=== PATIENT | female | born 1995 | race Two or more races ===

== ENCOUNTER 2024-04-23 11:07 | Emergency (ER) | payer MEDICAID ==
[~2024-04-23] VITALS: Ht 167.6 cm; Wt 87.3 kg
[2024-04-23] MEDS: ACETAMINOPHEN 325 MG TAB PO ONE (11:20)
[2024-04-23 12:36] VITALS: BP 125/62; PULSE 115; RESP 18; O2SAT 99
[2024-04-23 12:45] VITALS: TEMP 100.3
[2024-04-23] MEDS: IBUPROFEN 800 MG TAB PO ONE (12:45)
[2024-04-23] MEDS: cefTRIAXone SOD 1,000 MG VL IM ONE (12:47)
--- NOTE | 2024-04-23 12:48 | ED.PDOC ---
History of Present Illness HPI Comments A 28 YEAR OLD FEMALE PRESENTS TO THE ED WITH CHIEF COMPLAINT OF FLU-LIKE ILLNESS. PATIENT REPORTS THAT SHE HAS BEEN EXPERIENCING A COUGH WITH ASSOCIATED BODY ACHES, HILLS, FEVER, AND NASAL CONGESTION FOR THE PAST 2 DAYS. PATIENT DENIES ANY SOB, CHEST PAIN, HEADACHE, N/V/D, ABDOMINAL PAIN, OR DIZZINESS. NO OT HER SYMPTOMS REPORTED AT THIS TIME OF CARE. Chief Complaint: Flu like Time Seen by MD: 12:35 Primary Care Provider: IKER Britt Notes: Nurses Notes, Medications, Allergies Allergies: Coded Allergies: NO KNOWN ALLERGIES (Unverified , 07/15/23) Information Source: Patient Mode of Arrival: Wheelchair Severity: Moderate Timing: Days Duration: Since onset Prehospital treatment: None Medication Refill: For: Other (BODY ACHING AND CHILLS ) Past Medical History PAST MEDICAL HISTORY: Denies Surgical History: Denies all surgeries HUMAN RESOURCES GENERALIST History: No Pertinent HUMAN RESOURCES GENERALIST History Family History Family History: Reviewed,noncontributory to illness Social History Smoker: Non-Smoker Alcohol: Denies ETOH Use Drugs: Denies Drug Use Lives In: Home Constitutional: reports: chills, fever, others (BODY ACHE); denies: diaphoresis, fatigue, malaise, sweats, weakness EENTM: reports: nose congestion, throat pain; denies: blurred vision, double vision, ear bleeding, ear discharge, ear drainage, ear pain, ear ringing, eye pain, eye redness, hearing loss, mouth pain, mouth swelling, nasal discharge, nose bleeding, nose pain, photophobia, tearing, throat swelling, voice changes, others Respiratory: reports: cough; denies: hemoptysis, orthopnea, SOB at rest, delmer rtness of breath, SOB with excertion, stridor, wheezing, others Cardiovascular: denies: chest pain, dizzy spells, diaphoresis, Dyspnea on exertion, edema, irregular heart beat, left arm pain, lightheadedness, palpitations, PND, syncope, others Gastrointestinal: denies: abdomen distended, abdominal pain, blood streaked bowels, constipated, diarrhea, dysphagia, difficulty swallowing, hematemesis, melena, nausea, poor appetite, poor fluid intake, rectal bleeding, rectal pain, vomiting, others Genitourinary: denies: abnormal vagina bleeding, burning, dyspareunia, dysuria, flank pain, frequency, hematuria, incontinence, pain, , vagina discharge, urgency, others Neurological: denies: dizziness, fainting, headache, left sided numbness, left sided weakness, numbness, paresthesia, pre-existing deficit, right sided numbness, right sided weakness, seizure, speech problems, tingling, tremors, weakness, others Musculoskeletal: reports: muscle pain; denies: back pain, gout, joint pain, joint swelling, muscle stiffness, neck pain, others Integumetry: denies: bruises, change in color, change in hair/nails, dryness, laceration, lesions, lumps, rash, wounds, others Allergic/Immunocompromised: denies: Difficulty Healing, Frequent Infections, Hives, Itching, others Hematologic/Lymphatic: denies: anemia, blood clots, easy bleeding, easy bruising, swollen glands, others Endocrine: denies: excessive hunger, excessive sweating, excessive thirst, excessive urination, flushing, intolerance to cold, intolerance to heat, unexplained weight gain, unexplained weight loss, others Psychiatric: denies: anxiety, bipolar disorder, depression, hopeless, panic disorder, schizophrenia, sleepless, suicidal, others All Other Systems: Reviewed and Negative Physical Exam General Appearance: No Apparent Distress, Normal HEENT: PERRL/EOMI, Pharyngeal Erythema (TONSILLAR SWELLING, NO EXUDATES. ), TMs Normal Neck: Full Range of Motion, Non-Tender, Normal, Normal Inspection Respiratory: Chest Non-Tender, Lungs Clear, No Accessory Muscle Use, No Respiratory Distress, Normal Breath Sounds Cardiovascular: No Edema, No JVD, No Murmur, No Gallop, Normal Peripheral Pulses, Regular Rate/Rhythm Breast Exam: Deferred Gastrointestinal: No Organomegaly, Non Tender, No Pulsatile Mass, Normal Bowel Sounds, Soft Genitalia: Deferred Pelvic: Deferred Rectal: Deferred Extremities: No calf tenderness, Normal capillary refill, Normal inspection, Normal range of motion, Non-tender, No pedal edema Musculoskeletal : Apperance: Normal Neurologic: Alert, chisel worker II-XII nml as Tested, No Motor Deficits, Normal Affect, Normal Mood, No Sensory Deficits Cerebellar Function: Normal Reflexes: Normal Skin: Dry, Normal Color, Warm Peripheral Pulses: 2+ carotid (R), 2+ carotid (L) Lymphatic: No Adenopathy Was a procedure done? Was a procedure done?: No Differential Dx Considerations may include: URI, PHARYNGITIS, TONSILLITIS, UTI, VIRAL SYNDROME X-Ray, Labs, Meds, VS Vital Signs Date Time Temp Pulse Resp B/P (MAP) Pulse Ox O2 Delivery O2 Flow Rate FiO2 04/23/24 12:45 100.3 04/23/24 12:36 115 18 99 Room Air 04/23/24 12:36 100.3 115 18 125/62 (83) 99 100.3 04/23/24 11:29 18 98 Room Air* 0 21 04/23/24 11:20 100.2 04/23/24 11:12 100.2 120 18 125/47 (73) 98 Current Medications Medications (Trade) Dose Ordered Sig/Zheng Route Start Time Stop Time Status Last Admin Acetaminophen (Tylenol Tablet) 650 mg ONCE ONCE PO 04/23/24 11:30 04/23/24 11:31 DC 04/23/24 11:20 Ceftriaxone Sodium (Rocephin) 1,000 mg ONCE ONCE IM 04/23/24 12:45 04/23/24 12:46 DC 04/23/24 12:47 Ibuprofen (Motrin Tablet) 800 mg ONCE ONCE PO 04/23/24 12:45 04/23/24 12:46 DC 04/23/24 12:45 PATIENT: TERRELL BRIGHTCT: [id number]: [id number] : 1995 LOC: ER ROOM / BED: / AGE / SEX: 28 / F ADM STATUS: REG ER SERVICE 1120 ORDERING PHYSICIAN: WINNIE KENNEDY PROCEDURE(s): CXR1 - CHEST XRAY 1 VIEW REASON: COUGH ORDER NUMBER(s): [id number], ACCESSION NUMBER(s): [id number] CHEST RADIOGRAPH Indication: COUGH Technique: Single frontal view of the chest was obtained COMPARISON: None FINDINGS: Lines and Tubes: None Lungs: Clear Pleura: No effusion. No pneumothorax. Cardiomediastinal contours: Unremarkable Bones: Unremarkable IMPRESSION: No acute disease. ATED BY: MONICO FUENTES MD DICTATED DATE/TIME: 04/23/24 1250 SIGNED BY: MONICO FUENTES MD SIGNED DATE/TIME: 04/23/24 1250 CC: X-Ray, Labs, Meds, VS Comment EXTERNAL MEDICAL RECORDS REVIEWED: [NONE] INDEPENDENT HISTORIANS: [NONE] SOCIAL DETERMINANTS OF HEALTH: [NONE] LABS ORDERED: NONE REVIEWED AND INTERPRETED RESULTS: CHEST XR: INTERPRETED BY ME. NO ACUTE FINDINGS. NO FRACTURES OR DISLOCATION. PENDING RADIOLOGIST REPORT. IMAGING ORDERED: CHEST XR TREATMENTS ORDERED: ROCEPHIN 1G IM, IBUPROFEN 600MG PO, TYLENOL 650MG PO PROCEDURES PERFORMED: NONE CRITICAL CARE TIME: NONE GIVEN THE HISTORY AND PRESENT ILLNESS OF THE PATIENT, AFTER REVIEWING LABS, IMAGING, AND COURSE OF TREATMENT ADMINISTERED DURING THEIR ED VISIT, THERE IS LOW SUSPICION FOR RED FLAG FINDINGS. BASED ON HISTORY OF PRESENT ILLNESS, AND PHYSICAL EXAM, PATIENT WILL BE DISCHARGED HOME. DISCUSSED PLAN FOR DISCHARGE HOME WITH RX Z-ELANA AND IBUPROFEN 600MG. MEDICATION WARNINGS GIVEN. SHARED DECISION MAKING: DISCUSSED WITH PATIENT THAT THEIR WORKUP WAS NORMAL. PATIENT INSTRUCTED TO FOLLOW UP WITH PRIMARY CARE PROVIDER IN 1-2 DAYS FOR RE- EVALUATION OF SYMPTOMS. PATIENT VERBALIZES UNDERSTANDING TO RETURN TO ED FOR NEW OR WORSENING SYMPTOMS OR IF FOLLOW UP WITH PCP CANNOT BE OBTAINED. PATIENT FEELS COMFORTABLE GOING HOME AT THIS TIME. ALL QUESTIONS ADDRESSED AT TIME OF DISCHARGE. Time of 1ST Reevaluation: 13:20 Reevaluation 1ST: Improved Patient Education/Counseling: Diagnosis, Treatment, Need For Follow Up Family Education/Counseling: Diagnosis, Treatment, No Family Present Medical Screening: No EMC Exist At This Time Departure 1 Departure Time of Disposition: 13:20 Impression: Primary Impression: Acute tonsillitis Qualified Codes: J03.90 - Acute tonsillitis, unspecified Additional Impression: URI (upper respiratory infection) Qualified Codes: J03.90 - Acute tonsillitis, unspecified Disposition: HOME / SELF CARE / HOMELESS Condition: Stable Additional Instructions: FOLLOW-UP WITH PCP IN 1 TO 2 DAYS. TAKE MEDICATIONS PRESCRIBED. RETURN TO ED FOR ANY NEW OR WORSENING SYMPTOMS. e-Prescriptions Ibuprofen (Ibuprofen) 800 Mg Tab 1 TAB PO QID, #24 TAB Prov: WINNIE KENNEDY 04/23/24 Cephalexin Monohydrate (Cephalexin) 500 Mg Cap 1 CAP PO QID, #28 CAP Prov: WINNIE KENNEDY 04/23/24 Discharged With: Self, Relative Critical Care Note Critical Care Time?: No Stability Stability form required: No Heart Score Heart Score: Heart Score Response (Comments) Value History N/A 0 EKG N/A 0 Age N/A 0 Risk Factors N/A 0 Troponin N/A 0 Total 0 I personally scribed for WINNIE KENNEDY ([email or web address]) on 04/23/24 at 12:48. Electronically submitted by Dinesh Powell ([email or web address]). I personally scribed for WINNIE KENNEDY ([email or web address]) on 04/23/24 at 12:48. Electronically submitted by Dinesh Powell ([email or web address]). WINNIE KENNEDY Apr 23, 2024 12:48
--- NOTE | 2024-04-23 12:52 | DVH ---
CHEST RADIOGRAPH Indication: COUGH Technique: Single frontal view of the chest was obtained COMPARISON: None FINDINGS: Lines and Tubes: None Lungs: Clear Pleura: No effusion. No pneumothorax. Cardiomediastinal contours: Unremarkable Bones: Unremarkable IMPRESSION: No acute disease.
[2024-04-23] MEDS ORDERED: CEPH500C PO (13:04)
[2024-04-23] MEDS ORDERED: IBUP-1456 PO (13:04)
== END 2024-04-23 13:13 | disposition home or self-care (01) ==
LOC: ER 11:07
DX: J03.90 Acute tonsillitis, unspecified (principal)
CPT/HCPCS: 71045; 96372; 99283; J0696

== ENCOUNTER 2024-09-07 14:11 | Emergency (ER) | payer MEDICAID ==
[~2024-09-07] VITALS: Ht 172.7 cm; Wt 79.0 kg
[~2024-09-07 14:11] MED LIST: CEPH500C PO; IBUP-1456 PO
[2024-09-07 14:40] LABS: Hemoglobin 13.5 g/dL (12.2-16.2); Mean Corpuscular Hemoglobin 31.5 pg (28.0-32.0); Mean Corpuscular Volume 95.5 fL (80.0-100.0); Platelet Count (auto) 251 10^3/uL (140-450); Red Blood Cells 4.29 10^6/uL (4.0-5.20); Red Cell Distribution Width 14.6 % (11.8-14.3); White Blood Cell 5.3 10^3/uL (4.4-10.8)
--- NOTE | 2024-09-07 14:47 | ED.PDOC ---
History of Present Illness HPI Comments This is a 29-year-old female who comes in with chief complaint of a tonic clonic seizure. The patient states that she was at home complaining of some right flank pain. According to the family, the patient then had a seizure lasting approximately 2 minutes. They stated that the seizure was tonic-clonic in na ture. There was no head trauma. The patient has no history of seizures and has never had a seizure in the past. Upon arrival, the patient is still complaining of some pain to the right flank area. EN route, the patient had an Accu-Chek of 79. She developed some nausea so was given Zofran 4 mg by mouth. Chief Complaint: Seizure Time Seen by MD: 14:16 Primary Care Provider: IKER Britt Notes: Nurses Notes, Linux Network Systems Administrator Notes, Medications, Allergies (No allergies to medications) Allergies: Coded Allergies: NO KNOWN ALLERGIES (Unverified , 07/15/23) Home Meds Active Scripts Tramadol HCl (Tramadol HCl) 50 Mg Tab, 50 MG PO Q12HP PRN for 5 Days, #10 TAB Prov:MICHELLE RÍOS MD 09/07/24 Ibuprofen (Ibuprofen) 800 Mg Tab, 1 TAB PO QID, #24 TAB Prov:WINNIE KENNEDY 04/23/24 Cephalexin Monohydrate (Cephalexin) 500 Mg Cap, 1 CAP PO QID, #28 CAP Prov:WINNIE KENNEDY 04/23/24 Information Source: Patient, Emergency Med Personnel Mode of Arrival: EMS Severity: Moderate Timing: Hours Duration: Since onset Prehospital treatment: Accucheck (79), Gambling Counsellor, Other (Zofran 4 mg by mouth) Location: Right-sided flank pain Past Medical History PAST MEDICAL HISTORY: Asthma Surgical History: Denies all surgeries MEDICAL RECORDS AUDITOR History: No Pertinent MEDICAL RECORDS AUDITOR History Family History Family History: No family hx of Cancer, No family hx of DM, No family hx of H eart dena, No family hx of HTN Social History Smoker: Non-Smoker Alcohol: Denies ETOH Use Drugs: Marijuana Lives In: Home Constitutional: denies: chills, diaphoresis, fatigue, fever, malaise, sweats, weakness, others EENTM: denies: blurred vision, double vision, ear bleeding, ear discharge, ear drainage, ear pain, ear ringing, eye pain, eye redness, hearing loss, mouth pain, mouth swelling, nasal discharge, nose bleeding, nose congestion, nose pain, photophobia, tearing, throat pain, throat swelling, voice changes, others Respiratory: denies: cough, hemoptysis, orthopnea, SOB at rest, shortness of breath, SOB with excertion, stridor, wheezing, others Cardiovascular: denies: chest pain, dizzy spells, diaphoresis, Dyspnea on exertion, edema, irregular heart beat, left arm pain, lightheadedness, palpitations, PND, syncope, others Gastrointestinal: denies: abdomen distended, abdominal pain, blood streaked bowels, constipated, diarrhea, dysphagia, difficulty swallowing, hematemesis, melena, nausea, poor appetite, poor fluid intake, rectal bleeding, rectal pain, vomiting, others Genitourinary: reports: flank pain (Right-sided flank pain); denies: abnormal vagina bleeding, burning, dyspareunia, dysuria, frequency, hematuria, incontinence, pain, , vagina discharge, urgency, others Neurological: reports: seizure; denies: dizziness, fainting, headache, left sided numbness, left sided weakness, numbness, paresthesia, pre-existing deficit, right sided numbness, right sided weakness, speech problems, tingling, tremors, weakness, others Musculoskeletal: denies: back pain, gout, joint pain, joint swelling, muscle pain, muscle stiffness, neck pain, others Integumetry: denies: bruises, change in color, change in hair/nails, dryness, laceration, lesions, lumps, rash, wounds, others Allergic/Immunocompromised: denies: Difficulty Healing, Frequent Infections, Hives, Itching, others Hematologic/Lymphatic: denies: anemia, blood clots, easy bleeding, easy bruising, swollen glands, others Endocrine: denies: excessive hunger, excessive sweating, excessive thirst, excessive urination, flushing, intolerance to cold, intolerance to heat, unexplained weight gain, unexplained weight loss, others Psychiatric: denies: anxiety, bipolar disorder, depression, hopeless, panic disorder, schizophrenia, sleepless, suicidal, others Physical Exam General Appearance: Moderate Distress HEENT: Normal ENT Inspection, Pharynx Normal, TMs Normal Neck: Full Range of Motion, Non-Tender, Normal, Normal Inspection Respiratory: Chest Non-Tender, Lungs Clear, No Accessory Muscle Use, No Respiratory Distress, Normal Breath Sounds Cardiovascular: No Edema, No JVD, No Murmur, No Gallop, Normal Peripheral Pulses, Regular Rate/Rhythm Breast Exam: Deferred Gastrointestinal: No Organomegaly, Non Tender, No Pulsatile Mass, Normal Bowel Sounds, Soft Genitalia: Deferred Pelvic: Deferred Rectal: Deferred Extremities: No calf tenderness, Normal capillary refill, Normal inspection, Normal range of motion, Non-tender, No pedal edema Musculoskeletal : Apperance: Normal Neurologic: Alert, seam feller II-XII nml as Tested, No Motor Deficits, Normal Affect, Normal Mood, No Sensory Deficits Cerebellar Function: Normal Reflexes: Normal Skin: Dry, Normal Color, Warm Lymphatic: No Adenopathy Was a procedure done? Was a procedure done?: No Differential Dx Considerations may include: Kidney stones, UTI, seizures X-Ray, Labs, Meds, VS Vital Signs Date Time Temp Pulse Resp B/P (MAP) Pulse Ox O2 Delivery O2 Flow Rate FiO2 09/07/24 18:05 62 19 104/74 (84) 98 09/07/24 17:09 63 09/07/24 16:09 74 13 99 Room Air* 0 21 09/07/24 16:08 98.0 74 13 104/74 (84) 99 98.0 09/07/24 14:26 98.6 80 16 122/82 (95) 98 98.6 Lab Test 09/07/24 17:00 09/07/24 14:29 Range/Units Urine Test Negative Negative Urine Opiates Screen Neg NEGATIVE Urine Fentanyl Screen Neg NEGATIVE Urine Barbiturates Screen Neg NEGATIVE Urine Phencyclidine Screen Neg NEGATIVE Urine Amphetamines Screen Neg NEGATIVE Urine Benzodiazepines Screen Neg NEGATIVE Urine Cocaine Screen Neg NEGATIVE Urine Cannabinoids Screen Pos NEGATIVE White Blood Count 5.3 4.4-10.8 10^3/uL Red Blood Count 4.29 4.0-5.20 10^6/uL Hemoglobin 13.5 12.2-16.2 g/dL Hematocrit 41.0 36.0-46.0 % Mean Corpuscular Volume 95.5 80.0-100.0 fL Mean Corpuscular Hemoglobin 31.5 28.0-32.0 pg Mean Corpuscular Hemoglobin Concent 33.0 32.0-36.0 g/dL Red Cell Distribution Width 14.6 H 11.8-14.3 % Platelet Count 251 140-450 10^3/uL Mean Platelet Volume 10.3 6.9-10.8 fL Neutrophils (%) (Auto) 37.0-80.0 % Lymphocytes (%) (Auto) 10.0-50.0 % Monocytes (%) (Auto) 0.0-12.0 % Basophils (%) (Auto) 0.0-2.0 % Neutrophils # (Auto) 1.6-8.6 10 ^3/uL Lymphocytes # (Auto) 0.4-5.4 10 ^3/uL Monocytes # (Auto) 0-1.3 10 ^3/uL Differential Total Cells Counted 100.0 100 Neutrophils % (Manual) 42 37.0-80.0 Band Neutrophils % (Manual) 0 Lymphocytes % (Manual) 57 H 10.0-50.0 Monocytes % (Manual) 0 0-12 Eosinophils % (Manual) 1 0-7 Basophils % (Manual) 0 0.0-2.0 Metamyelocytes % (manual) 0 Myelocytes % (Manual) 0 Promyelocytes % (Manual) 0 Blast Cells % (Manual) 0 Reactive Lymphocytes 0 Platelet Estimate Adequate Sodium Level 139 136-145 mmol/L Potassium Level 4.1 3.5-5.1 mmol/L Chloride Level 105 98-107 mmol/L Carbon Dioxide Level 27 20-31 mmol/L Anion Gap 7 5-15 Blood Urea Nitrogen 7 L 9-23 mg/dL Creatinine 0.67 0.550-1.02 mg/dL Glomerular Filtration Rate Calc 122 >90 mL/min BUN/Creatinine Ratio 10.4 10.0-20.0 Serum Glucose 89 74-106 mg/dL Calcium Level 10.1 8.7-10.4 mg/dL The patient's urine test is positive for marijuana The CBC is within normal limits The chemistry panel is within normal limits The patient was being given a prescription of tramadol The patient's CAT scan of the abdomen and pelvis shows: Right 2.0 cm ovarian cyst The patient was discharged Images Reviewed?: Images reviewed and evaluated by me Time of 1ST Reevaluation: 14:46 Reevaluation 1ST: Unchanged Patient Education/Counseling: Diagnosis, Treatment, Prognosis, Need For Follow Up Family Education/Counseling: No Family Present Departure 1 Departure Time of Disposition: 18:52 Impression: Primary Impression: Back pain Qualified Codes: M54.50 - Low back pain, unspecified Additional Impressions: First time seizure Right ovarian cyst Disposition: HOME / SELF CARE / HOMELESS Condition: Fair e-Prescriptions Tramadol HCl (Tramadol HCl) 50 Mg Tab 50 MG PO Q12HP PRN for 5 Days, #10 TAB Prov: MICHELLE RÍOS MD 09/07/24 Discharged With: Self Critical Care Note Critical Care Time?: Yes (45 min-critical care time only) Stability Stability form required: No Heart Score Heart Score: Heart Score Response (Comments) Value History N/A 0 EKG N/A 0 Age N/A 0 Risk Factors N/A 0 Troponin N/A 0 Total 0 MICHELLE RÍOS MD September 07, 2024 14:47
[2024-09-07 14:51] LABS: Chloride 105 mmol/L (98-107); Potassium 4.1 mmol/L (3.5-5.1); Sodium 139 mmol/L (136-145)
[2024-09-07 14:52] LABS: Anion Gap 7 (5-15); Calcium 10.1 mg/dL (8.7-10.4); Carbon Dioxide 27 mmol/L (20-31)
[2024-09-07 14:53] LABS: Band Neutrophils % (manual) 0; Basophils % (manual) 0 (0.0-2.0); Blast Cells 0; Metamyelocytes % 0; Monocytes % (manual) 0 (0-12); Myelocytes % 0; Promyelocytes % 0; Reactive Lymphocytes 0
[2024-09-07 14:57] LABS: BUN/Creatinine Ratio 10.4 (10.0-20.0); Glucose 89 mg/dL (74-106)
[2024-09-07 15:00] LABS: Blood Urea Nitrogen 7 mg/dL (9-23)
[2024-09-07 15:15] LABS: Eosinophils % (manual) 1 (0-7); Lymphocytes % (manual) 57 (10.0-50.0); Platelet Estimate Adequate
[2024-09-07 16:09] VITALS: PULSE 74; RESP 13; O2SAT 99
[2024-09-07 17:30] LABS: Amphetamine Screen, Urine Neg (NEGATIVE); Barbiturate Scree,Urine Neg (NEGATIVE); Benzodiazephine Screen, Urine Neg (NEGATIVE); Cannabinoid Screen, Urine Pos (NEGATIVE); Cocaine Screen, Urine Neg (NEGATIVE); Opiate Scree,Urine Neg (NEGATIVE); Phencyclidine Screen, Urine Neg (NEGATIVE)
--- NOTE | 2024-09-07 18:02 | DVH ---
CT CT AB PEL WO CON-NO ORAL OR IV INDICATION: right flank pain EXAM DATE: 09/07/2024 05:31 PM COMPARISON: None RADIATION DOSE: CTDIvol: 9.72 mGy, DLP: 529.25 mGy*cm PROCEDURE: Helical CT images were obtained of the abdomen and pelvis without IV contrast Sagittal and coronal reconstructions are provided. ORAL CONTRAST: None. ADDITIONAL IMAGES / REFORMATS: None All C T scans at this medical facility are performed using dose modulation techniques as appropriate to a p erformed exam including the following: Automated exposure control was utilized; adjustment of the MA and/or KV according to patient size; and use of iterative reconstruction technique. FINDINGS: LUNG BASE: Normal. LIVER: Normal. GALLBLADDER AND BILIARY TREE: No calcified gallstones. Normal caliber wall. No intra- or extrahepatic biliary ductal dilation. PANCREAS: Normal. SPLEEN: Normal. BOWEL: Normal. Normal appendix. ADRENALS: Normal. KIDNEYS AND URETER: Normal. BLADDER: Normal. REPRODUCTIVE ORGANS: 2.0 cm right ovarian cyst. LYMPH NODES:No lymphadenopathy. PERITONEUM: No ascites or free air. No other fluid collection. VESSELS: Normal RETROPERITONEUM: Normal. ABDOMINAL WALL: Normal. BONES: Normal. IMPRESSION: No acute intraabdominal abnormality.
[2024-09-07] MEDS ORDERED: TRAM-626 PO (18:54)
[2024-09-07 19:24] LABS: Urine Bacteria None Seen /hpf (None Seen)
[2024-09-07 19:30] VITALS: BP 101/42; PULSE 70; RESP 19; TEMP 97.8; O2SAT 99
[2024-09-07 19:34] LABS: Urine Blood Negative /uL (Negative); Urine Clarity Clear (Clear); Urine Color Light-Yellow (Yellow); Urine Mucus FEW (None Seen); Urine Protein, UAD Negative (Negative); Urine Specific Gravity 1.021 (1.001-1.035); Urine Squamous Epithelial Cell FEW /hpf (<5); Urine Urobilinogen 3 mg/dL (Negative); Urine WBC 2 /HPF (0-5)
== END 2024-09-07 20:03 | disposition home or self-care (01) ==
LOC: EDBD 14:11 → ER 14:14
DX: N83.201 Unspecified ovarian cyst, right side (principal); J45.909 Unspecified asthma, uncomplicated; R56.9 Unspecified convulsions; M54.9 Dorsalgia, unspecified; R10.9 Unspecified abdominal pain; R11.0 Nausea; F12.90 Cannabis use, unspecified, uncomplicated; Z79.899 Other long term (current) drug therapy
CPT/HCPCS: 36415; 74176; 80048; 80307; 81001; 81025; 85007; 85027